=== PATIENT | male | born 1990 | race African-American/Black ===

== ENCOUNTER 2016-09-03 00:54 | Emergency (ER) | payer MEDICAID ==
[~2016-09-03] VITALS: Ht 170.2 cm; Wt 125.2 kg
[2016-09-03] MEDS ORDERED: HYDROmorphone HCL 2 MG/ML VL IM ONE (04:15)
[2016-09-03] MEDS ORDERED: ONDANSETRON HCL 4 MG/2 ML VIAL IM ONE (04:15)
[2016-09-03 05:57] VITALS: BP 119/66
== END 2016-09-03 06:08 | disposition home or self-care (01) ==
LOC: ER 00:58
DX: S83.92XA Sprain of unspecified site of left knee, initial encounter (principal); X58.XXXA Exposure to other specified factors, initial encounter; Y93.01 Activity, walking, marching and hiking; Y99.8 Other external cause status; Y92.89 Other specified places as the place of occurrence of the external cause
CPT/HCPCS: 73562; 96372; 99284; J1170; J2405

== ENCOUNTER 2017-05-31 12:31 | Emergency (ER) | payer MEDICAID ==
[~2017-05-31] VITALS: Ht 170.2 cm; Wt 95.3 kg
[2017-05-31 13:03] VITALS: BP 132/89
== END 2017-05-31 13:22 | disposition home or self-care (01) ==
LOC: ER 12:37
DX: S39.012A Strain of muscle, fascia and tendon of lower back, initial encounter (principal); V43.62XA Car passenger injured in collision with other type car in traffic accident, initial encounter; Y93.89 Activity, other specified; Y92.89 Other specified places as the place of occurrence of the external cause; Y99.8 Other external cause status

== ENCOUNTER 2018-03-17 15:26 | Emergency (ER) | payer MEDICAID ==
[~2018-03-17] VITALS: Ht 170.2 cm; Wt 99.8 kg
[2018-03-17 16:26] LABS: Basophils # (auto) 0 uL; Basophils % (auto) 0.3 % (0.0-2.0); Eosinophils # (auto) 0.1 uL; Eosinophils % (auto) 0.6 % (0.0-7.0); Hematocrit 46.9 % (41.0-53.0); Hemoglobin 15.8 g/dL (13.5-17.5); Lymphocytes # (auto) 1.3 uL; Lymphocytes % (auto) 10.3 % (10.0-50.0); Mean Corpuscular Hemoglobin 30.7 pg (28.0-32.0); Mean Corpuscular Hgb Conc. 33.7 g/dL (32.0-36.0); Monocytes # (auto) 0.7 uL; Monocytes % (auto) 5.3 % (0.0-12.0); Neutrophils # (auto) 10.3 uL; Neutrophils % (auto) 83.5 % (37.0-80.0); Nucleated Red Blood Cells % 0.1 %; Platelet Count (auto) 214 10^3/uL (140-450); Red Blood Cells 5.15 10^6/uL (4.5-5.90); Red Cell Distribution Width 13.3 % (11.8-14.3); White Blood Cell 12.3 10^3/uL (4.4-10.8)
[2018-03-17 16:58] LABS: Albumin 4.2 g/dL (3.4-5.0); BUN/Creatinine Ratio 8.9; Bilirubin, Total 0.3 mg/dL (0.2-1.0); Calcium 8.9 mg/dL (8.5-10.1); Total Protein 8.3 g/dL (6.4-8.2)
[2018-03-17] MEDS ORDERED: KETOROLAC TROMETH 60MG/2ML VIAL IM ONE (23:30)
[2018-03-17] MEDS ORDERED: ONDANSETRON ODT 4 MG TAB PO ONE (23:30)
[2018-03-18 00:05] VITALS: BP 125/76
[2018-03-18 02:35] LABS: Urine Bacteria NONE SEEN /hpf (None Seen); Urine Blood 1+ /uL (Negative); Urine Specific Gravity 1.017 (1.001-1.035); Urine WBC 2 /hpf (0 - 3)
[2018-03-18 02:48] LABS: Alcohol, Urine < 3.0 mg/dL (0-5); Amphetamine Screen, Urine NEGATIVE (NEGATIVE); Barbiturate Scree,Urine NEGATIVE (NEGATIVE); Benzodiazephine Screen, Urine POSITIVE (NEGATIVE); Cannabinoid Screen, Urine POSITIVE (NEGATIVE); Cocaine Screen, Urine NEGATIVE (NEGATIVE); Opiate Scree,Urine NEGATIVE (NEGATIVE); Phencyclidine Screen, Urine NEGATIVE (NEGATIVE)
== END 2018-03-18 02:37 | disposition home or self-care (01) ==
LOC: ER 15:26
DX: K52.9 Noninfective gastroenteritis and colitis, unspecified (principal); F12.10 Cannabis abuse, uncomplicated; F17.210 Nicotine dependence, cigarettes, uncomplicated
CPT/HCPCS: 36415; 74176; 80053; 80307; 81001; 85025; 96372; 99285; J1885; Q0162

== ENCOUNTER 2019-06-17 10:15 | Emergency (ER) | payer SELFPAY ==
[~2019-06-17] VITALS: Ht 170.2 cm; Wt 108.9 kg
[2019-06-17 11:37] VITALS: BP 170/97
== END 2019-06-17 12:24 | disposition home or self-care (01) ==
LOC: ER 10:15
DX: S40.011A Contusion of right shoulder, initial encounter (principal); F17.210 Nicotine dependence, cigarettes, uncomplicated; F12.10 Cannabis abuse, uncomplicated; V18.0XXA Pedal cycle driver injured in noncollision transport accident in nontraffic accident, initial encounter; Y93.89 Activity, other specified; Y99.8 Other external cause status; Y92.89 Other specified places as the place of occurrence of the external cause
CPT/HCPCS: 73000